=== PATIENT | female | born 1990 | race Caucasian/White ===

== ENCOUNTER → 2017-01-23 | Outpatient (CLI) | payer OTHER ==
[2017-01-23 11:12] LABS: URINE BILIRUBIN - DIPSTICK NEGATIVE (NEG); URINE BLOOD 2+ (NEG)
[2017-01-23 11:20] LABS: URINE SQUAMOUS CELLS 20-50 #/hpf (0-5)
[2017-01-23 11:30] LABS: HEMOGLOBIN 16.4 g/dL (12.2-16.2); LYMPH # 2.8 K/mm3 (0.7-4.5); LYMPH % 38.2 % (10-50.0)
[2017-01-23 14:04] LABS: BUN 10 mg/dL (7-18)
[2017-01-23 14:14] LABS: GFR (ESTIMATED) 100 ML/MIN (59-)
== END ==
LOC: LAB 10:54
PROVIDERS: Obstetrics & Gynecology
DX: R10.2 Pelvic and perineal pain (principal); Z01.812 Encounter for preprocedural laboratory examination